=== PATIENT | female | born 1965 | race Caucasian/White ===

== ENCOUNTER → 2017-02-09 | Outpatient (CLI) | payer OTHER ==
--- NOTE | 2017-02-09 08:15 | CT ---
EXAMINATION TYPE: CT abdomen pelvis wo con DATE OF EXAM: 02/09/2017 7:40 AM COMPARISON: NONE HISTORY: Patient complains of RUQ pain. CT DLP: 877.1 mGycm FINDINGS: LUNG BASES: No evidence for nodule. No evidence for infiltrate. LIVER/GB: The gallbladder is unremarkable. No space-occupying hepatic lesion. Hepatic granuloma noted . Mary's lobe identified. PANCREAS: No pancreatic mass identified. No inflammatory process seen. SPLEEN: No evidence for splenomegaly. No intrasplenic lesions seen. ADRENALS: No adrenal nodules identified. No evidence for thickening. KIDNEYS: No evidence for renal mass. No nephrolithiasis. No hydronephrosis. BOWEL: Appendix has a normal appearance. No evidence of bowel obstruction. No inflammatory process. Lymph nodes: No evidence for adenopathy greater than 1 cm. Abdominal aorta: Atheromatous changes seen. No evidence for aneurysm. Genital organs: Hysterectomy changes. A large simple appearing cyst right ovary measures 5.3 x 5.1 cm . Consider further characterization with ultrasound. Left ovary appears to demonstrate a small 1.4 cm cyst. Other: Severe degenerative change L4-5 and L5-S1 disc bulging IMPRESSION: 1.A large simple appearing cyst right ovary measures 5.3 x 5.1 cm. Consider further characterization with ultrasound.
== END | disposition home or self-care (01) ==
LOC: RADCTMAIN 07:15
PROVIDERS: ATTEND Internal Medicine
DX: N83.201 Unspecified ovarian cyst, right side (principal)
CPT/HCPCS: 74176

== ENCOUNTER → 2017-06-05 | Outpatient (CLI) | payer OTHER ==
--- NOTE | 2017-06-14 07:38 | MM ---
Reason for exam: clinical finding. History: Took hormonal contraceptives for 5 years. Physical Findings: Nurse did not find any significant physical abnormalities on exam. MG Diagnostic Mammo w CAD CHARLY Bilateral CC and MLO view(s) were taken. There are scattered fibroglandular densities. There is no discrete abnormality. These results were verbally communicated with the patient on 06/13/17. ASSESSMENT: Negative, BI-RAD 1 RECOMMENDATION: Routine screening mammogram of both breasts in 1 year. Manage on a clinical basis with regard to bilateral breast pain.
== END | disposition home or self-care (01) ==
LOC: RADMAMWWP 08:37
PROVIDERS: ATTEND Obstetrics & Gynecology
DX: N64.4 Mastodynia (principal)

== ENCOUNTER 2018-08-30 15:48 | Emergency (ER) | payer OTHER ==
[2018-08-30 15:59] VITALS: RESP 16; TEMP 98.5
[2018-08-30] MEDS ORDERED: SODIUM CHLORIDE 0.9% 1,000 ML IV STA (16:47)
[2018-08-30 17:52] LABS: Appearance,Urine Clear (Clear); Bilirubin,Urine Negative (Negative); Blood,Urine Negative (Negative); Color,Urine Yellow; Glucose,Urine (UA) Negative (Negative); Ketones,Urine Negative (Negative); Leukocyte Esterase,Urine Negative (Negative); Nitrite,Urine Negative (Negative); PH, Urine 5.5 (5.0-8.0); Protein,Urine Negative (Negative); Specific Gravity,Urine 1.017 (1.001-1.035); Urobilinogen,Urine <2.0 mg/dL (<2.0)
[2018-08-30 18:07] LABS: ALT 33 U/L (9-52); AST 29 U/L (14-36); Albumin 4.2 g/dL (3.5-5.0); Alkaline Phosphatase 76 U/L (38-126); Anion Gap 7 mmol/L; Blood Urea Nitrogen 13 mg/dL (7-17); Calcium 9.8 mg/dL (8.4-10.2); Carbon Dioxide 29 mmol/L (22-30); Chloride 104 mmol/L (98-107); Glucose 87 mg/dL (74-99); Potassium 5.1 mmol/L (3.5-5.1); Sodium 140 mmol/L (137-145); Total Bilirubin 0.5 mg/dL (0.2-1.3)
[2018-08-30 18:12] LABS: Creatine Kinase 36 U/L (30-135)
[2018-08-30 18:25] LABS: Creatine Kinase MB 0.5 ng/mL (0.0-2.4); Troponin I <0.012 ng/mL (0.000-0.034)
[2018-08-30 18:29] LABS: Basophils % (A) 0 %; Eosinophils # (A) 0.1 k/uL (0-0.7); Eosinophils % (A) 2 %; HGB 18.7 gm/dL (11.4-16.0); Lymphocytes # (A) 1.8 k/uL (1.0-4.8); Lymphocytes % (A) 29 %; MCH 30.4 pg (25.0-35.0); MCHC 33.4 g/dL (31.0-37.0); Mean Platelet Volume 6.5; Monocytes # (A) 0.4 k/uL (0-1.0); Monocytes % (A) 6 %; Neutrophils # (A) 3.7 k/uL (1.3-7.7); Neutrophils % (A) 61 %; Platelet Count 276 k/uL (150-450); RBC 6.15 m/uL (3.80-5.40); RDW 13.5 % (11.5-15.5); WBC 6.1 k/uL (3.8-10.6)
--- NOTE | 2018-08-30 18:38 | ED ---
Recheck HPI - General Chief Complaint: Recheck/Abnormal Lab/Rx Stated Complaint: HIGH BP, DEHYDRATION Time Seen by Provider: 08/30/18 16:43 Source: patient, RN notes reviewed, old records reviewed Mode of arrival: ambulatory Limitations: no limitations - History of Present Illness Initial Comments: This is a 53-year-old female the ER for evaluation of dehydration and abnormal lab tests. Abnormal blood pressure. Patient herself denies any significant complaints denies any new medications. She is a smoker with over 60 medication. Patient presented to plasma today and has basically presented multiple times to donate plasma and has been rejected. Patient's been rejected for dehydration. Otherwise patient is no complaints no headache chest pain shortness breath or abdominal pain no weakness. No recent fevers no nausea vomiting or diarrhea. MD Complaint: abnormal lab (Patient had lab draw which showed concentrated CO) -: unknown Returns Today for: Called Because of Abnormal Lab/Test (Patient also had abnormal blood pressure) Symptoms Since Prior Visit: no new symptoms Associated Symptoms: none Treatments Prior to Arrival: other (Patient encouraged to drink more fluid) - Related Data Home Medications Medication Instructions Recorded Confirmed Acetaminophen [Tylenol] 650 mg PO Q4H PRN 08/30/18 08/30/18 Albuterol Inhaler [Ventolin Hfa 1 - 2 puff INHALATION RT-Q6H PRN 08/30/18 Inhaler] Baclofen [Lioresal] 10 mg PO DAILY PRN 08/30/18 08/30/18 Naproxen Sodium [Aleve] 220 mg PO Q12HR PRN 08/30/18 08/30/18 Allergies Allergy/AdvReac Type Severity Reaction Status Date / Time No Known Allergies Allergy Unverified 08/30/18 17:39 Review of Systems ROS Statement: Those systems with pertinent positive or pertinent negative responses have been documented in the HPI. ROS Other: All systems not noted in ROS Statement are negative. Past Medical History Past Medical History: COPD History of Any Multi-Drug Resistant Organisms: None Reported Past Surgical History: Hysterectomy Additional Past Surgical History / Comment(s): NECK Past Psychological History: Anxiety, Depression Smoking Status: Current every day smoker Past Alcohol Use History: None Reported Past Drug Use History: Marijuana General Exam Limitations: no limitations General appearance: alert, in no apparent distress Head exam: Present: atraumatic, normocephalic, normal inspection Eye exam: Present: normal appearance, PERRL, EOMI. Absent: scleral icterus, conjunctival injection, periorbital swelling ENT exam: Present: normal exam, mucous membranes moist Neck exam: Present: normal inspection. Absent: tenderness, meningismus, lymphadenopathy Respiratory exam: Present: normal lung sounds bilaterally. Absent: respiratory distress, wheezes, rales, rhonchi, stridor Cardiovascular Exam: Present: regular rate, normal rhythm, normal heart sounds. Absent: systolic murmur, diastolic murmur, rubs, gallop, clicks GI/Abdominal exam: Present: soft, normal bowel sounds. Absent: distended, tenderness, guarding, rebound, rigid Extremities exam: Present: normal inspection, full ROM, normal capillary refill. Absent: tenderness, pedal edema, joint swelling, calf tenderness Back exam: Present: normal inspection Neurological exam: Present: alert, oriented X3, CN II-XII intact Psychiatric exam: Present: normal affect, normal mood Skin exam: Present: warm, dry, intact, normal color. Absent: rash Course Vital Signs 08/30/18 15:54 Temperature 98.5 F Pulse Rate 86 Respiratory 16 Rate Blood Pressure 132/91 O2 Sat by Pulse 98 Oximetry - Reevaluation(s) Reevaluation #1: 08/30/18 18:37 Medical record is reviewed Reevaluation #2: 08/30/18 18:37 Patient given hydration the ER Medical Decision Making - Medical Decision Making 53 female the ER for evaluation presents today for evasive dehydration, patient given hydration here in the ER, encouraged increased oral intake at home and patient can be discharged blood pressure is normal - Lab Data Result diagrams: 08/30/18 17:15 08/30/18 17:15 Lab Results 08/30/18 08/30/18 08/30/18 Range/Units 17:15 17:15 17:15 WBC 6.1 (3.8-10.6) k/uL RBC 6.15 H (3.80-5.40) m/uL Hgb 18.7 H (11.4-16.0) gm/dL Hct 56.0 H (34.0-46.0) % MCV 91.0 (80.0-100.0) fL MCH 30.4 (25.0-35.0) pg MCHC 33.4 (31.0-37.0) g/dL RDW 13.5 (11.5-15.5) % Plt Count 276 (150-450) k/uL Neutrophils % 61 % Lymphocytes % 29 % Monocytes % 6 % Eosinophils % 2 % Basophils % 0 % Neutrophils # 3.7 (1.3-7.7) k/uL Lymphocytes # 1.8 (1.0-4.8) k/uL Monocytes # 0.4 (0-1.0) k/uL Eosinophils # 0.1 (0-0.7) k/uL Basophils # 0.0 (0-0.2) k/uL Sodium 140 (137-145) mmol/L Potassium 5.1 (3.5-5.1) mmol/L Chloride 104 (98-107) mmol/L Carbon Dioxide 29 (22-30) mmol/L Anion Gap 7 mmol/L BUN 13 (7-17) mg/dL Creatinine 0.63 (0.52-1.04) mg/dL Est GFR (CKD-EPI)AfAm >90 (>60 ml/min/1.73 sqM) Est GFR (CKD-EPI)NonAf >90 (>60 ml/min/1.73 sqM) Glucose 87 (74-99) mg/dL Calcium 9.8 (8.4-10.2) mg/dL Phosphorus 5.0 H (2.5-4.5) mg/dL Magnesium 2.0 (1.6-2.3) mg/dL Total Bilirubin 0.5 (0.2-1.3) mg/dL AST 29 (14-36) U/L ALT 33 (9-52) U/L Alkaline Phosphatase 76 (38-126) U/L Total Creatine Kinase 36 (30-135) U/L CK-MB (CK-2) 0.5 (0.0-2.4) ng/mL CK-MB (CK-2) Rel Index 1.4 Troponin I <0.012 (0.000-0.034) ng/mL Total Protein 7.0 (6.3-8.2) g/dL Albumin 4.2 (3.5-5.0) g/dL Urine Color Urine Appearance (Clear) Urine pH (5.0-8.0) Ur Specific Daphne (1.001-1.035) Urine Protein (Negative) Urine Glucose (UA) (Negative) Urine Ketones (Negative) Urine Blood (Negative) Urine Nitrite (Negative) Urine Bilirubin (Negative) Urine Urobilinogen (<2.0) mg/dL Ur Leukocyte Esterase (Negative) 08/30/18 Range/Units 17:15 WBC (3.8-10.6) k/uL RBC (3.80-5.40) m/uL Hgb (11.4-16.0) gm/dL Hct (34.0-46.0) % MCV (80.0-100.0) fL MCH (25.0-35.0) pg MCHC (31.0-37.0) g/dL RDW (11.5-15.5) % Plt Count (150-450) k/uL Neutrophils % % Lymphocytes % % Monocytes % % Eosinophils % % Basophils % % Neutrophils # (1.3-7.7) k/uL Lymphocytes # (1.0-4.8) k/uL Monocytes # (0-1.0) k/uL Eosinophils # (0-0.7) k/uL Basophils # (0-0.2) k/uL Sodium (137-145) mmol/L Potassium (3.5-5.1) mmol/L Chloride (98-107) mmol/L Carbon Dioxide (22-30) mmol/L Anion Gap mmol/L BUN (7-17) mg/dL Creatinine (0.52-1.04) mg/dL Est GFR (CKD-EPI)AfAm (>60 ml/min/1.73 sqM) Est GFR (CKD-EPI)NonAf (>60 ml/min/1.73 sqM) Glucose (74-99) mg/dL Calcium (8.4-10.2) mg/dL Phosphorus (2.5-4.5) mg/dL Magnesium (1.6-2.3) mg/dL Total Bilirubin (0.2-1.3) mg/dL AST (14-36) U/L ALT (9-52) U/L Alkaline Phosphatase (38-126) U/L Total Creatine Kinase (30-135) U/L CK-MB (CK-2) (0.0-2.4) ng/mL CK-MB (CK-2) Rel Index Troponin I (0.000-0.034) ng/mL Total Protein (6.3-8.2) g/dL Albumin (3.5-5.0) g/dL Urine Color Yellow Urine Appearance Clear (Clear) Urine pH 5.5 (5.0-8.0) Ur Specific Daphne 1.017 (1.001-1.035) Urine Protein Negative (Negative) Urine Glucose (UA) Negative (Negative) Urine Ketones Negative (Negative) Urine Blood Negative (Negative) Urine Nitrite Negative (Negative) Urine Bilirubin Negative (Negative) Urine Urobilinogen <2.0 (<2.0) mg/dL Ur Leukocyte Esterase Negative (Negative) Disposition Clinical Impression: Dehydration Disposition: HOME SELF-CARE Condition: Good Instructions: Dehydration (ED) Is patient prescribed a controlled substance at d/c from ED?: No Referrals: Isidoro Potter MD [Primary Care Provider] - 1-2 days
[2018-08-30 18:54] VITALS: BP 131/93; PULSE 82
== END 2018-08-30 18:55 | disposition home or self-care (01) ==
LOC: EC 15:48
DX: E86.0 Dehydration (principal); J44.9 Chronic obstructive pulmonary disease, unspecified; F17.200 Nicotine dependence, unspecified, uncomplicated
CPT/HCPCS: 36415; 80053; 81003; 82550; 82553; 83735; 84100; 84484; 85025; 87086; 93005; 96360; 99284

== ENCOUNTER 2018-09-08 14:13 | Emergency (ER) | payer OTHER ==
[2018-09-08] MEDS ORDERED: ACETAMINOPHEN TAB 500 MG TAB PO STA (15:14)
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
[2018-09-08 16:17] VITALS: RESP 18; TEMP 97.8
--- NOTE | 2018-09-08 16:57 | XR ---
EXAMINATION TYPE: XR wrist complete RT DATE OF EXAM: 09/08/2018 COMPARISON: NONE HISTORY: Wrist pain TECHNIQUE: 4 views FINDINGS: There are degenerative cysts in the distal scaphoid. I see no fracture nor dislocation. Rad iocarpal joint is intact. 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 No fracture.
--- NOTE | 2018-09-08 16:59 | XR ---
EXAMINATION TYPE: XR hand complete RT DATE OF EXAM: 09/08/2018 COMPARISON: NONE HISTORY: Hand pain TECHNIQUE: 3 views FINDINGS: I see no fracture nor dislocation. Metacarpals are intact. There are no erosions. IMPRESSION: No acute abnormality of the right hand.
[2018-09-08 17:39] VITALS: BP 139/97; PULSE 80
== END 2018-09-08 17:30 | disposition home or self-care (01) ==
LOC: EC 14:13
DX: T74.11XA Adult physical abuse, confirmed, initial encounter (principal); S09.90XA Unspecified injury of head, initial encounter; S19.9XXA Unspecified injury of neck, initial encounter; S69.91XA Unspecified injury of right wrist, hand and finger(s), initial encounter; J45.909 Unspecified asthma, uncomplicated; F17.200 Nicotine dependence, unspecified, uncomplicated; Y09 Assault by unspecified means
CPT/HCPCS: 70450; 72125; 99284

== ENCOUNTER → 2018-10-05 | Outpatient (CLI) | payer OTHER ==
--- NOTE | 2018-10-05 09:34 | CT ---
EXAMINATION TYPE: CT abdomen pelvis w con DATE OF EXAM: 10/05/2018 COMPARISON: 02/09/2017 HISTORY: RLQ pain, weight loss, constipation. CT DLP: 659 mGycm CONTRAST: CT scan of the abdomen and pelvis is performed with Oral Contrast and with IV Contrast, patient injec fannie with 100 mL of Isovue 300. FINDINGS: LUNG BASES-: No visible nodule. No infiltrate. LIVER/GB: No calcified gallstones. No space occupying hepatic lesion. Biliary tree is of normal ca liber. Mild fatty hepatic infiltration identified. Granuloma at the dome of the liver. PANCREAS: No inflammation. No distinct mass. SPLEEN: No splenic enlargement. No lesion seen. ADRENALS: No nodule. No thickening. KIDNEYS/BLADDER: No hydronephrosis. No nephrolithiasis. No distinct renal mass. Urinary bladder g rossly unremarkable. BOWEL: Normal appendix. Normal bowel caliber. No inflammation. Moderate fecal stasis. GENITAL ORGANS: Hysterectomy changes noted. Stable large right ovarian cystic lesion measuring 5.4 c m versus 5.3 cm previously. Left ovarian cystic lesion seen previously is no longer evident. LYMPH NODES: No greater than 1cm abdominal or pelvic lymph nodes are appreciated. AORTA: No significant abnormality. OSSEOUS STRUCTURES: No significant abnormality is seen. OTHER: No significant additional abnormality is seen. IMPRESSION: 1. Moderate fecal stasis. No acute inflammatory process identified. 2. Right ovarian lesion is essentially unchanged. 3. Fatty liver.
== END | disposition home or self-care (01) ==
LOC: RADCTMAIN 07:12
PROVIDERS: ATTEND Internal Medicine
DX: K56.41 Fecal impaction (principal); K76.0 Fatty (change of) liver, not elsewhere classified; N83.9 Noninflammatory disorder of ovary, fallopian tube and broad ligament, unspecified
CPT/HCPCS: 74177; Q9967

== ENCOUNTER 2021-11-18 16:58 | Emergency (ER) | payer OTHER ==
[2021-11-18 17:35] VITALS: TEMP 98
[2021-11-18 17:55] LABS: Basophils % (A) 0 %; Eosinophils # (A) 0.2 k/uL (0-0.7); Eosinophils % (A) 2 %; HCT 44.9 % (34.0-46.0); HGB 14.4 gm/dL (11.4-16.0); Lymphocytes # (A) 1.7 k/uL (1.0-4.8); Lymphocytes % (A) 26 %; MCH 30.5 pg (25.0-35.0); MCHC 32.2 g/dL (31.0-37.0); MCV 94.9 fL (80.0-100.0); Mean Platelet Volume 6.9; Monocytes # (A) 0.5 k/uL (0-1.0); Monocytes % (A) 7 %; Neutrophils # (A) 4.2 k/uL (1.3-7.7); Neutrophils % (A) 63 %; Platelet Count 251 k/uL (150-450); RBC 4.73 m/uL (3.80-5.40); RDW 14.3 % (11.5-15.5); WBC 6.5 k/uL (3.8-10.6)
[2021-11-18 18:03] LABS: INR 0.9 (<1.2); Partial Thromboplastin Time 26.4 sec (22.0-30.0)
[2021-11-18 18:16] LABS: ALT 19 U/L (4-34); AST 26 U/L (14-36); African American GFR (CKD) >90 (>60 ml/min/1.73 sqM); Albumin 3.8 g/dL (3.5-5.0); Alkaline Phosphatase 74 U/L (38-126); Anion Gap 6 mmol/L; Blood Urea Nitrogen 12 mg/dL (7-17); Calcium 8.7 mg/dL (8.4-10.2); Carbon Dioxide 25 mmol/L (22-30); Chloride 107 mmol/L (98-107); Glucose 96 mg/dL (74-99); Magnesium 1.7 mg/dL (1.6-2.3); Non-African American GFR(CKD) >90 (>60 ml/min/1.73 sqM); Potassium 3.9 mmol/L (3.5-5.1); Sodium 138 mmol/L (137-145); Total Bilirubin 0.5 mg/dL (0.2-1.3); Total Protein 6.5 g/dL (6.3-8.2)
[2021-11-18 18:19] LABS: Appearance,Urine Clear (Clear); Bilirubin,Urine Negative (Negative); Blood,Urine Negative (Negative); Color,Urine Light Yellow; Glucose,Urine (UA) Negative (Negative); Ketones,Urine Negative (Negative); Leukocyte Esterase,Urine Negative (Negative); Nitrite,Urine Negative (Negative); Protein,Urine Negative (Negative); Specific Gravity,Urine 1.007 (1.001-1.035); Urobilinogen,Urine <2.0 mg/dL (<2.0)
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
[2021-11-18] MEDS ORDERED: MAGNESIUM SULFATE-D5W PMX 1 GM in DEXTROSE/WATER 1 100ML.BAG IVPB ONE (19:22)
[2021-11-18] MEDS ORDERED: methylPREDNISolone SOD SUCCI 125 MG/2 ML VIAL IV STA (19:22)
[2021-11-18] MEDS ORDERED: IPRATROPIUM-ALBUTEROL 3 ML NEB INHALATION STA (19:22)
--- NOTE | 2021-11-18 19:32 | ED ---
SOB HPI - General Chief Complaint: Chest Pain Stated Complaint: Chest pain Time Seen by Provider: 11/18/21 19:15 Source: patient, RN notes reviewed Mode of arrival: ambulatory Limitations: no limitations - History of Present Illness Initial Comments: This is a pleasant 56-year-old female presents to the emergency department for shortness of breath, cough, patient has a history of COPD Patient also complaining of chest wall pain. Patient states that her lower sternal area and left anterior chest wall hurts when she takes a deep breath and also when she moves or twists. Patient states she's been coughing more than usual and thinks she injured coughing. Patient states that pain started this morning when she was at work. Patient is still a cigarette smoker. History of long-standing COPD. Take inhalers at home. Also complaining of headache., no fever or chills, no changes in vision or hearing, no sore throat or difficulty with speech, no neck pain, minimally productive cough for clear sputum, no abdominal pain, no nausea or vomiting, no changes in urination or bowel movements, no numbness or tingling, no extremity pain, no skin rashes or lesions. MD Complaint: shortness of breath, cough - Related Data Home Medications Medication Instructions Recorded Confirmed Albuterol Sulfate [Proair Hfa] 2 puff INHALATION RT-Q6H PRN 11/18/21 11/18/21 Budesonide/Formoterol Fumarate 2 puff INHALATION RT-BID 11/18/21 11/18/21 [Symbicort 160-4.5 Mcg Inhaler] Losartan Potassium [Cozaar] 25 mg PO DAILY 11/18/21 11/18/21 Previous Rx's Medication Instructions Recorded Doxycycline Monohydrate [Monodox] 100 mg PO Q12HR #14 cap 11/18/21 predniSONE 50 mg PO DAILY #5 tab 11/18/21 Allergies Allergy/AdvReac Type Severity Reaction Status Date / Time No Known Allergies Allergy Verified 11/18/21 19:50 Review of Systems ROS Statement: Those systems with pertinent positive or pertinent negative responses have been documented in the HPI. ROS Other: All systems not noted in ROS Statement are negative. Past Medical History Past Medical History: COPD History of Any Multi-Drug Resistant Organisms: None Reported Past Surgical History: Hysterectomy Additional Past Surgical History / Comment(s): NECK Past Psychological History: Anxiety, Depression Smoking Status: Current every day smoker Past Alcohol Use History: None Reported Past Drug Use History: Marijuana General Exam Limitations: no limitations Course Vital Signs 11/18/21 11/18/21 11/18/21 17:29 20:12 20:24 Temperature 98.0 F Pulse Rate 73 76 80 Respiratory 18 Rate Blood Pressure 150/95 O2 Sat by Pulse 96 Oximetry - Reevaluation(s) Reevaluation #1: 11/18/21 21:07 Medical record is reviewed Symptoms are improved here in the emergency department Patient is informed of results and questions answered Patient in no distress Medical Decision Making - Medical Decision Making Patient symptomology most consistent with a COPD exacerbation with chest wall pain. Chest wall pain is reproducible. Patient has essentially normal/nondiagnostic EKG with a normal troponin. Patient has been coughing more than usual to due to her COPD. Chest x-ray shows possibility of pneumonia. - Lab Data Result diagrams: 11/18/21 17:38 11/18/21 17:38 Lab Results 11/18/21 11/18/21 11/18/21 Range/Units 17:38 17:38 17:38 WBC 6.5 (3.8-10.6) k/uL RBC 4.73 (3.80-5.40) m/uL Hgb 14.4 (11.4-16.0) gm/dL Hct 44.9 (34.0-46.0) % MCV 94.9 (80.0-100.0) fL MCH 30.5 (25.0-35.0) pg MCHC 32.2 (31.0-37.0) g/dL RDW 14.3 (11.5-15.5) % Plt Count 251 (150-450) k/uL MPV 6.9 Neutrophils % 63 % Lymphocytes % 26 % Monocytes % 7 % Eosinophils % 2 % Basophils % 0 % Neutrophils # 4.2 (1.3-7.7) k/uL Lymphocytes # 1.7 (1.0-4.8) k/uL Monocytes # 0.5 (0-1.0) k/uL Eosinophils # 0.2 (0-0.7) k/uL Basophils # 0.0 (0-0.2) k/uL PT 10.0 (9.0-12.0) sec INR 0.9 (<1.2) APTT 26.4 (22.0-30.0) sec D-Dimer (<0.60) mg/L FEU Sodium 138 (137-145) mmol/L Potassium 3.9 (3.5-5.1) mmol/L Chloride 107 (98-107) mmol/L Carbon Dioxide 25 (22-30) mmol/L Anion Gap 6 mmol/L BUN 12 (7-17) mg/dL Creatinine 0.52 (0.52-1.04) mg/dL Est GFR (CKD-EPI)AfAm >90 (>60 ml/min/1.73 sqM) Est GFR (CKD-EPI)NonAf >90 (>60 ml/min/1.73 sqM) Glucose 96 (74-99) mg/dL Calcium 8.7 (8.4-10.2) mg/dL Magnesium 1.7 (1.6-2.3) mg/dL Total Bilirubin 0.5 (0.2-1.3) mg/dL AST 26 (14-36) U/L ALT 19 (4-34) U/L Alkaline Phosphatase 74 (38-126) U/L Troponin I (0.000-0.034) ng/mL Total Protein 6.5 (6.3-8.2) g/dL Albumin 3.8 (3.5-5.0) g/dL Urine Color Urine Appearance (Clear) Urine pH (5.0-8.0) Ur Specific Gulliver (1.001-1.035) Urine Protein (Negative) Urine Glucose (UA) (Negative) Urine Ketones (Negative) Urine Blood (Negative) Urine Nitrite (Negative) Urine Bilirubin (Negative) Urine Urobilinogen (<2.0) mg/dL Ur Leukocyte Esterase (Negative) Coronavirus (PCR) (Not Detectd) 11/18/21 11/18/21 11/18/21 Range/Units 17:38 18:06 18:06 WBC (3.8-10.6) k/uL RBC (3.80-5.40) m/uL Hgb (11.4-16.0) gm/dL Hct (34.0-46.0) % MCV (80.0-100.0) fL MCH (25.0-35.0) pg MCHC (31.0-37.0) g/dL RDW (11.5-15.5) % Plt Count (150-450) k/uL MPV Neutrophils % % Lymphocytes % % Monocytes % % Eosinophils % % Basophils % % Neutrophils # (1.3-7.7) k/uL Lymphocytes # (1.0-4.8) k/uL Monocytes # (0-1.0) k/uL Eosinophils # (0-0.7) k/uL Basophils # (0-0.2) k/uL PT (9.0-12.0) sec INR (<1.2) APTT (22.0-30.0) sec D-Dimer (<0.60) mg/L FEU Sodium (137-145) mmol/L Potassium (3.5-5.1) mmol/L Chloride (98-107) mmol/L Carbon Dioxide (22-30) mmol/L Anion Gap mmol/L BUN (7-17) mg/dL Creatinine (0.52-1.04) mg/dL Est GFR (CKD-EPI)AfAm (>60 ml/min/1.73 sqM) Est GFR (CKD-EPI)NonAf (>60 ml/min/1.73 sqM) Glucose (74-99) mg/dL Calcium (8.4-10.2) mg/dL Magnesium (1.6-2.3) mg/dL Total Bilirubin (0.2-1.3) mg/dL AST (14-36) U/L ALT (4-34) U/L Alkaline Phosphatase (38-126) U/L Troponin I <0.012 (0.000-0.034) ng/mL Total Protein (6.3-8.2) g/dL Albumin (3.5-5.0) g/dL Urine Color Light Yellow Urine Appearance Clear (Clear) Urine pH 7.0 (5.0-8.0) Ur Specific Gulliver 1.007 (1.001-1.035) Urine Protein Negative (Negative) Urine Glucose (UA) Negative (Negative) Urine Ketones Negative (Negative) Urine Blood Negative (Negative) Urine Nitrite Negative (Negative) Urine Bilirubin Negative (Negative) Urine Urobilinogen <2.0 (<2.0) mg/dL Ur Leukocyte Esterase Negative (Negative) Coronavirus (PCR) Not Detected (Not Detectd) 11/18/21 11/18/21 Range/Units 19:43 19:46 WBC (3.8-10.6) k/uL RBC (3.80-5.40) m/uL Hgb (11.4-16.0) gm/dL Hct (34.0-46.0) % MCV (80.0-100.0) fL MCH (25.0-35.0) pg MCHC (31.0-37.0) g/dL RDW (11.5-15.5) % Plt Count (150-450) k/uL MPV Neutrophils % % Lymphocytes % % Monocytes % % Eosinophils % % Basophils % % Neutrophils # (1.3-7.7) k/uL Lymphocytes # (1.0-4.8) k/uL Monocytes # (0-1.0) k/uL Eosinophils # (0-0.7) k/uL Basophils # (0-0.2) k/uL PT (9.0-12.0) sec INR (<1.2) APTT (22.0-30.0) sec D-Dimer 0.42 (<0.60) mg/L FEU Sodium (137-145) mmol/L Potassium (3.5-5.1) mmol/L Chloride (98-107) mmol/L Carbon Dioxide (22-30) mmol/L Anion Gap mmol/L BUN (7-17) mg/dL Creatinine (0.52-1.04) mg/dL Est GFR (CKD-EPI)AfAm (>60 ml/min/1.73 sqM) Est GFR (CKD-EPI)NonAf (>60 ml/min/1.73 sqM) Glucose (74-99) mg/dL Calcium (8.4-10.2) mg/dL Magnesium (1.6-2.3) mg/dL Total Bilirubin (0.2-1.3) mg/dL AST (14-36) U/L ALT (4-34) U/L Alkaline Phosphatase (38-126) U/L Troponin I <0.012 (0.000-0.034) ng/mL Total Protein (6.3-8.2) g/dL Albumin (3.5-5.0) g/dL Urine Color Urine Appearance (Clear) Urine pH (5.0-8.0) Ur Specific Gulliver (1.001-1.035) Urine Protein (Negative) Urine Glucose (UA) (Negative) Urine Ketones (Negative) Urine Blood (Negative) Urine Nitrite (Negative) Urine Bilirubin (Negative) Urine Urobilinogen (<2.0) mg/dL Ur Leukocyte Esterase (Negative) Coronavirus (PCR) (Not Detectd) - EKG Data EKG Comments: EKG done at 1738 read by the ED attending physician reveals sinus rhythm with a rate of 73. Poor R-wave progression. Normal axis. Normal intervals. No acute ST or T-wave changes. Normal QRS morphology The case was discussed in detail with ED attending physician. Presentation, findings, treatment plan discussed in detail. Patient reevaluated prior to discharge. EKG showed no significant changes. Patient 2 negative troponins. Patient's presentation consistent with chest wall pain as it was very reproducible. D-dimer was negative. Patient's signs and symptoms consistent with COPD exacerbation. We'll cover with doxycycline. Patient has inhalers at home. Patient also has a cableman which I told her to follow up with. I told her to call the morning for appointment without fail. We'll place the patient on prednisone 50 mg daily for 5 days. Doxy cycline 100 mg twice a day for 7 days. I told the patient she can use her rescue inhaler every 4 hours as needed. Repeat examination prior to discharge revealed no adventitious lung sounds. Patient was counseled on cigarette smoking. Patient was told to return to the ER for any signs or symptoms worsen. Told to return immediately if any other problems arise. All questions answered. Treatment plan discussed. Patient in agreement Every effort has been made to ensure accuracy of this dictation. However, due to the limitations of electronic medical records and dictation devices, errors in charting still occur. - Radiology Data Radiology results: report reviewed, image reviewed Disposition Clinical Impression: COPD exacerbation, Chest wall pain, Cigarette smoker Disposition: HOME SELF-CARE Condition: Good Instructions (If sedation given, give patient instructions): How to Stop Smoking (ED), COPD (Chronic Obstructive Pulmonary Disease) (ED), Chest Wall Pain (ED) Additional Instructions: Take the antibiotics as directed. Use her rescue inhaler 2 puffs every 4 hours as directed. Take the prednisone as directed. Make follow-up appointment with her cableman. Return to the ER immediately if any symptoms worsen, new symptoms arise, or any other problems develop. Prescriptions: Doxycycline Monohydrate [Monodox] 100 mg PO Q12HR #14 cap predniSONE 50 mg PO DAILY #5 tab Is patient prescribed a controlled substance at d/c from ED?: No Referrals: Nancy Castrejon MD [STAFF PHYSICIAN] - 1-2 days Time of Disposition: 21:06
[2021-11-18] MEDS ORDERED: ALBUTEROL NEBULIZED 2.5 MG/3 ML INHALATION STA (20:04)
[2021-11-18] MEDS ORDERED: ACETAMINOPHEN TAB 500 MG TAB PO STA (21:01)
[2021-11-18] MEDS ORDERED: DOXYCYCLINE 100 MG CAP PO STA (21:04)
[2021-11-18 21:44] VITALS: BP 125/85; PULSE 72; RESP 16
== END 2021-11-18 21:43 | disposition home or self-care (01) ==
LOC: EC 16:58
DX: J44.1 Chronic obstructive pulmonary disease with (acute) exacerbation (principal); F17.210 Nicotine dependence, cigarettes, uncomplicated; Z20.822 Contact with and (suspected) exposure to COVID-19; F32.A Depression, unspecified; F41.9 Anxiety disorder, unspecified; F12.90 Cannabis use, unspecified, uncomplicated
CPT/HCPCS: 36415; 94640; 93005; 85379; 80053; 83735; 84484; 85025; 85610; 85730; 81003; 87635; 71046; 99285; 96365; 96375; J2930; J3475

== ENCOUNTER → 2022-01-20 | Outpatient (CLI) | payer OTHER ==
--- NOTE | 2022-01-21 07:12 | US ---
EXAMINATION TYPE: US thyroid st tissue head/neck DATE OF EXAM: 01/20/2022 COMPARISON: NONE CLINICAL HISTORY: R22.1 LUMP IN THROAT Right neck palpable lump Right neck at patient area of concern: appears wnl IMPRESSION: No distinct mass identified.
== END | disposition home or self-care (01) ==
LOC: RADUSWWP 16:08
PROVIDERS: ATTEND Family Medicine
DX: R22.1 Localized swelling, mass and lump, neck (principal)
CPT/HCPCS: 76536

== ENCOUNTER → 2023-04-28 | Outpatient (CLI) | payer OTHER ==
--- NOTE | 2023-04-28 16:55 | US ---
EXAMINATION TYPE: US abdomen complete DATE OF EXAM: 04/28/2023 COMPARISON: CT 10/05/18 CLINICAL INDICATION: Female, 57 years old with history of R93.5 ABN FINDINGS ON DX IMAGING OF ABD REG IONS, I; Abnormal Xray. Possible Mary's lobe on Xray. TECHNIQUE: Multiple sonographic images of the abdomen are obtained. FINDINGS: EXAM MEASUREMENTS: Liver Length: 20.5 cm Gallbladder Wall: 0.26 cm CBD: 0.47 cm Spleen: 8.2 cm Right Kidney: 11.1 x 5.8 x 4.5 cm Left Kidney: 10.9 x 5.5 x 5.0 cm FIRE CAPTAIN NOTES: Exam is limited due to gas. Pancreas: Limited due to gas. Liver: Appears enlarged- 20.5 cm. Possible Mary's lobe was seen on xray. Gallbladder: Appears anechoic. Measures 9.3 cm in length. Evidence for sonographic Granados's sign: No CBD: Appears wnl Spleen: Appears wnl Right Kidney: No hydronephrosis or masses seen Left Kidney: No hydronephrosis or masses seen Upper IVC: Appears wnl Abd Aorta: Proximal segment appears ectatic: 2.9 x 2.9 cm. IMPRESSION: Hepatomegaly.
== END | disposition home or self-care (01) ==
LOC: RADUSWWP 16:11
PROVIDERS: ATTEND Family Medicine
DX: R16.0 Hepatomegaly, not elsewhere classified (principal); R93.5 Abnormal findings on diagnostic imaging of other abdominal regions, including retroperitoneum
CPT/HCPCS: 76700